=== PATIENT | female | born 1980 | race Two or more races ===

== ENCOUNTER 2023-02-10 05:41 | Emergency (ER) | payer OTHER ==
[~2023-02-10] VITALS: Ht 157.5 cm; Wt 115.7 kg
[~2023-02-10 05:41] MED LIST: ENDOCET 5/325 T1 TAB PO
== END 2023-02-10 14:56 | disposition home or self-care (01) ==
LOC: ER 05:41
DX: K57.92 Diverticulitis of intestine, part unspecified, without perforation or abscess without bleeding (principal); Z88.6 Allergy status to analgesic agent; Z88.0 Allergy status to penicillin

== ENCOUNTER 2025-04-10 00:16 | Emergency (ER) | payer OTHER ==
[~2025-04-10] VITALS: Ht 154.9 cm; Wt 122.0 kg
[2025-04-10] MEDS ORDERED: SIMVASTATIN5 MG (00:35)
[2025-04-10] MEDS ORDERED: ORPHENADRINE CITRATE 30 MG/ML AMPUL IM STA (02:47)
[2025-04-10] MEDS ORDERED: ACETAMINOPHEN 500 MG GEL..CAP PO STA (02:48)
[2025-04-10] MEDS ORDERED: TRIAMCINOLONE ACETONIDE 40 MG/ML VIAL IM STA (02:48)
[2025-04-10] MEDS ORDERED: TRIAMCINOLONE ACETONIDE 40 MG/ML VIAL ONE (02:52)
[2025-04-10] MEDS ORDERED: ORPHENADRINE CITRATE 30 MG/ML AMPUL ONE (02:52)
[2025-04-10] MEDS ORDERED: ACETAMINOPHEN 500 MG GEL..CAP PO ONE (02:53)
[2025-04-10] MEDS ORDERED: DOLOGESIC-DF 51 EACH PO (03:29)
[2025-04-10] MEDS ORDERED: NORFLEX100MG PO (03:29)
== END 2025-04-10 03:43 ==
LOC: ER 00:22
DX: M54.50 Low back pain, unspecified (principal); Z88.0 Allergy status to penicillin; Z88.6 Allergy status to analgesic agent; Z91.013 Allergy to seafood